=== PATIENT | male | born 1955 | race Two or more races ===

== ENCOUNTER 2020-10-22 14:12 | Emergency (ER) | payer OTHER ==
[~2020-10-22] VITALS: Ht 167.6 cm; Wt 74.8 kg
[2020-10-22 14:55] LABS: Basophils # (auto) 0.1 10 ^3/uL (0-0.2); Basophils % (auto) 0.6 % (0.0-2.0); Eosinophils # (auto) 0 10 ^3/uL (0-0.8); Eosinophils % (auto) 0.5 % (0.0-7.0); Hemoglobin 16.2 g/dL (13.5-17.5); Lymphocytes % (auto) 21.4 % (10.0-50.0); Mean Corpuscular Hemoglobin 30.4 pg (28.0-32.0); Mean Corpuscular Hgb Conc. 34.5 g/dL (32.0-36.0); Mean Corpuscular Volume 88.1 fL (80.0-100.0); Monocytes # (auto) 0.7 10 ^3/uL (0-1.3); Monocytes % (auto) 7.1 % (0.0-12.0); Neutrophils # (auto) 6.4 10 ^3/uL (1.6-8.6); Neutrophils % (auto) 70.4 % (37.0-80.0); Nucleated Red Blood Cells % 0.1 %; Red Blood Cells 5.33 10^6/uL (4.5-5.90); Red Cell Distribution Width 13.8 % (11.8-14.3); White Blood Cell 9.1 10^3/uL (4.4-10.8)
[2020-10-22] MEDS ORDERED: SODIUM CHLORIDE 0.9% 1,000 ML IV ONE (15:00)
[2020-10-22 15:13] LABS: Albumin 3.7 g/dL (3.4-5.0); BUN/Creatinine Ratio 13.6; Calcium 9.3 mg/dL (8.5-10.1); Potassium 3.6 mmol/L (3.5-5.1)
[2020-10-22 15:16] LABS: Bilirubin, Total 1.1 mg/dL (0.2-1.0); Total Protein 8.2 g/dL (6.4-8.2)
[2020-10-22 15:34] LABS: Urine Bacteria NONE SEEN /hpf (None Seen); Urine Blood TRACE /uL (Negative); Urine Mucus FEW (None Seen); Urine Specific Gravity 1.032 (1.001-1.035); Urine WBC 3 /hpf (0 - 3)
[2020-10-22] MEDS ORDERED: MORPHINE SULFATE 4 MG/ML SYR/VIAL IV ONE ×3 (16:00→22:00)
[2020-10-22] MEDS ORDERED: ONDANSETRON HCL 4 MG/2 ML VIAL IV ONE (16:00)
[2020-10-22] MEDS ORDERED: cefTRIAXone 1GM/50ML D5W 50 ML IV ONE (16:45)
[2020-10-22] MEDS ORDERED: metroNIDAZOLE 500MG/100ML 100 ML IV ONE (16:45)
[2020-10-22] MEDS ORDERED: LABETALOL HCL 5 MG/ML 4ML SYRINGE IV ONE (18:00)
[2020-10-23] MEDS ORDERED: MORPHINE SULFATE 4 MG/ML SYR/VIAL IV ONE (01:15)
[2020-10-23] MEDS ORDERED: hydrALAZINE HCL 20 MG/ML VL IV ONE (01:45)
[2020-10-23 03:00] VITALS: BP 176/81
== END 2020-10-23 03:38 | disposition short-term general hospital (02) ==
LOC: ER 14:12
DX: K57.92 Diverticulitis of intestine, part unspecified, without perforation or abscess without bleeding (principal); Z20.822 Contact with and (suspected) exposure to COVID-19
CPT/HCPCS: 36415; 74176; 80053; 81001; 83605; 83690; 85025; 87040; 87426; 93005; 96361; 96365; 96368; 96375; 96376; 99285; C9803; J0360; J0696; J2270; J2405; J3490; U0003

== ENCOUNTER 2022-12-06 23:08 | Inpatient (IN) | payer OTHER ==
[~2022-12-06] VITALS: Ht 167.6 cm; Wt 65.9 kg
[2022-12-06 23:57] LABS: Basophils # (auto) 0 10 ^3/uL (0-0.2); Basophils % (auto) 0.6 % (0.0-2.0); Eosinophils # (auto) 0 10 ^3/uL (0-0.8); Eosinophils % (auto) 0.5 % (0.0-7.0); Hematocrit 46.1 % (41.0-53.0); Hemoglobin 15.7 g/dL (13.5-17.5); Lymphocytes # (auto) 1.2 10 ^3/uL (0.4-5.4); Lymphocytes % (auto) 13.4 % (10.0-50.0); Mean Corpuscular Hemoglobin 29.2 pg (28.0-32.0); Mean Corpuscular Volume 86.1 fL (80.0-100.0); Monocytes # (auto) 0.9 10 ^3/uL (0-1.3); Monocytes % (auto) 10.1 % (0.0-12.0); Neutrophils # (auto) 6.8 10 ^3/uL (1.6-8.6); Neutrophils % (auto) 75.4 % (37.0-80.0); Nucleated Red Blood Cells % 0.1 %; Red Blood Cells 5.35 10^6/uL (4.5-5.90); Red Cell Distribution Width 15.3 % (11.8-14.3)
[2022-12-07] VITALS (24 sets, daily range): BP systolic 92–145; BP diastolic 51–96
[2022-12-07] MEDS ORDERED: cefTRIAXone 1GM/50ML D5W 50 ML IV ONE
[2022-12-07] MEDS ORDERED: metroNIDAZOLE 500MG/100ML 100 ML IV ONE
[2022-12-07 00:15] LABS: Albumin 2.9 g/dL (3.4-5.0); BUN/Creatinine Ratio 34.2 (10.0-20.0); Calcium 8.9 mg/dL (8.5-10.1); Potassium 3.8 mmol/L (3.5-5.1)
[2022-12-07 00:18] LABS: Bilirubin, Total 0.9 mg/dL (0.2-1.0); Total Protein 7.2 g/dL (6.4-8.2)
[2022-12-07] MEDS ORDERED: HYDROmorphone HCL 2 MG/ML VL/or syr IV ONE ×2 (00:45→12:15)
[2022-12-07] MEDS ORDERED: SODIUM CHLORIDE 0.9% 1,000 ML IV ONE (01:00)
[2022-12-07 01:28] LABS: INR 1.15 (0.9-1.15)
[2022-12-07] MEDS ORDERED: IOHEXOL 300 MG/ML 100ML BOTTLE IJ ONE (02:14)
[2022-12-07] MEDS ORDERED: NITROGLYCERIN 0.4 MG SL TAB SL PRN (03:30)
[2022-12-07] MEDS ORDERED: ACETAMINOPHEN 325 MG TAB PO PRN (03:30)
[2022-12-07] MEDS ORDERED: SODIUM CHLORIDE 0.9% 1,000 ML IV SCH (03:30)
[2022-12-07] MEDS ORDERED: MORPHINE SULFATE INJ 2 MG/ml SYRG IV PRN ×2 (03:30)
[2022-12-07 04:34] LABS: Basophils # (auto) 0 10 ^3/uL (0-0.2); Basophils % (auto) 0.2 % (0.0-2.0); Eosinophils # (auto) 0 10 ^3/uL (0-0.8); Eosinophils % (auto) 0.4 % (0.0-7.0); Hematocrit 45.1 % (41.0-53.0); Hemoglobin 15.5 g/dL (13.5-17.5); Lymphocytes # (auto) 1.2 10 ^3/uL (0.4-5.4); Lymphocytes % (auto) 13.5 % (10.0-50.0); Mean Corpuscular Hemoglobin 29.6 pg (28.0-32.0); Mean Corpuscular Hgb Conc. 34.4 g/dL (32.0-36.0); Mean Corpuscular Volume 86.3 fL (80.0-100.0); Monocytes # (auto) 0.9 10 ^3/uL (0-1.3); Neutrophils # (auto) 6.9 10 ^3/uL (1.6-8.6); Neutrophils % (auto) 75.9 % (37.0-80.0); Nucleated Red Blood Cells % 0.1 %; Red Blood Cells 5.22 10^6/uL (4.5-5.90); White Blood Cell 9.1 10^3/uL (4.4-10.8)
[2022-12-07 04:52] LABS: Calcium 8.5 mg/dL (8.5-10.1); Potassium 3.7 mmol/L (3.5-5.1)
[2022-12-07 04:58] LABS: Albumin 3.1 g/dL (3.4-5.0); BUN/Creatinine Ratio 36.6 (10.0-20.0); Bilirubin, Total 0.8 mg/dL (0.2-1.0)
[2022-12-07] MEDS: metroNIDAZOLE 500MG/100ML 100 ML IV SCH ×3 (05:54→20:33)
[2022-12-07] MEDS ORDERED: MET500T PO (07:17)
[2022-12-07] MEDS ORDERED: CARV12.544 PO (07:17)
[2022-12-07] MEDS ORDERED: APIX2.5T PO (07:17)
[2022-12-07] MEDS ORDERED: TRAM50TA2 PO (07:17)
[2022-12-07] MEDS ORDERED: HYDR50TA15 PO (07:17)
[2022-12-07] MEDS ORDERED: LOSA-69 PO (07:17)
[2022-12-07] MEDS ORDERED: AMLO-489 PO (07:17)
[2022-12-07] MEDS ORDERED: SUCCINYLCHOLINE CHLORIDE 20 MG/ML 10ML VIAL IV ONE (08:54)
[2022-12-07] MEDS ORDERED: MIDAZOLAM HCL 2MG/2ML 2ml VIAL (1mg/ml) ONE (08:55)
[2022-12-07] MEDS ORDERED: fentaNYL CITRATE 100 MCG/2 ML VL ONE ×2 (08:55→11:22)
[2022-12-07] MEDS ORDERED: ROCURONIUM 10MG/ML 10ML VIAL IV ONE (08:58)
[2022-12-07 09:05] LABS: INR 1.14 (0.9-1.15); Partial Thromboplastin Time 28.6 sec (24.6-33.4)
[2022-12-07] MEDS ORDERED: ceFAZolin 1GM/50ML 100 ML IV ONE (09:32)
[2022-12-07] MEDS: FAMOTIDINE (10MG/ML) 2ML VL IV SCH ×2 (10:00→20:33)
[2022-12-07] MEDS ORDERED: ALBUMIN 5% 500 ML IV ONE (10:30)
[2022-12-07] MEDS ORDERED: ONDANSETRON HCL 4 MG/2 ML VIAL ONE (11:03)
[2022-12-07] MEDS ORDERED: ETOMIDATE (2MG/ML) 20ML VIAL IV ONE (11:03)
[2022-12-07] MEDS ORDERED: NEOSTIGMINE 1 MG/ML INJ (10mg/10ML VIAL) ONE (11:05)
[2022-12-07] MEDS ORDERED: GLYCOPYRROLATE 0.2 MG/ML 1ML VIAL ONE (11:05)
[2022-12-07] MEDS ORDERED: POVIDONE IODINE 10 % TOPICAL OINT 30GM TOP ONE (11:32)
[2022-12-07] MEDS: HYDROmorphone HCL 2 MG/ML VL/or syr IV SCH ×4 (12:15→13:38)
[2022-12-07] MEDS: D5W/SOD CHL 0.45%/KCL 20MEQ 1,000 ML IV SCH (14:00)
[2022-12-07] MEDS: cefTRIAXone 1GM/50ML D5W 50 ML IV SCH (14:00)
[2022-12-07] MEDS: HYDROmorphone HCL 2 MG/ML VL/or syr IV PRN ×2 (14:34→20:34)
[2022-12-08] VITALS (56 sets, daily range): BP systolic 59–219; BP diastolic 56–204
[2022-12-08] MEDS: D5W/SOD CHL 0.45%/KCL 20MEQ 1,000 ML IV SCH ×3 (01:48→17:35)
[2022-12-08] MEDS: metroNIDAZOLE 500MG/100ML 100 ML IV SCH ×3 (06:00→23:35)
[2022-12-08] MEDS: HYDROmorphone HCL 2 MG/ML VL/or syr IV PRN ×5 (06:00→23:43)
[2022-12-08 06:59] LABS: Basophils # (auto) 0 10 ^3/uL (0-0.2); Basophils % (auto) 0.4 % (0.0-2.0); Eosinophils # (auto) 0 10 ^3/uL (0-0.8); Eosinophils % (auto) 0.2 % (0.0-7.0); Hematocrit 36.4 % (41.0-53.0); Hemoglobin 12.3 g/dL (13.5-17.5); Lymphocytes # (auto) 1.2 10 ^3/uL (0.4-5.4); Mean Corpuscular Hgb Conc. 33.8 g/dL (32.0-36.0); Mean Corpuscular Volume 85.8 fL (80.0-100.0); Monocytes # (auto) 1.1 10 ^3/uL (0-1.3); Neutrophils # (auto) 9.5 10 ^3/uL (1.6-8.6); Neutrophils % (auto) 80.4 % (37.0-80.0); Red Blood Cells 4.24 10^6/uL (4.5-5.90); White Blood Cell 11.8 10^3/uL (4.4-10.8)
[2022-12-08 07:28] LABS: Albumin 2.7 g/dL (3.4-5.0); Calcium 7.3 mg/dL (8.5-10.1); Potassium 4.3 mmol/L (3.5-5.1)
[2022-12-08 07:31] LABS: BUN/Creatinine Ratio 25.7 (10.0-20.0); Bilirubin, Total 0.9 mg/dL (0.2-1.0); Total Protein 5.4 g/dL (6.4-8.2)
[2022-12-08] MEDS: FAMOTIDINE (10MG/ML) 2ML VL IV SCH ×2 (07:43→23:35)
[2022-12-08] MEDS: cefTRIAXone 1GM/50ML D5W 50 ML IV SCH (07:58)
[2022-12-09] VITALS (39 sets, daily range): BP systolic 114–171; BP diastolic 70–101
[2022-12-09 04:53] LABS: Basophils # (auto) 0 10 ^3/uL (0-0.2); Basophils % (auto) 0.2 % (0.0-2.0); Eosinophils # (auto) 0.1 10 ^3/uL (0-0.8); Eosinophils % (auto) 1.1 % (0.0-7.0); Hemoglobin 11.5 g/dL (13.5-17.5); Lymphocytes # (auto) 1.1 10 ^3/uL (0.4-5.4); Lymphocytes % (auto) 11.3 % (10.0-50.0); Mean Corpuscular Hemoglobin 29.3 pg (28.0-32.0); Mean Corpuscular Hgb Conc. 33.9 g/dL (32.0-36.0); Mean Corpuscular Volume 86.4 fL (80.0-100.0); Monocytes # (auto) 0.9 10 ^3/uL (0-1.3); Monocytes % (auto) 9.3 % (0.0-12.0); Neutrophils # (auto) 7.8 10 ^3/uL (1.6-8.6); Neutrophils % (auto) 78.1 % (37.0-80.0); Nucleated Red Blood Cells % 0.2 %; Red Blood Cells 3.93 10^6/uL (4.5-5.90); Red Cell Distribution Width 15.1 % (11.8-14.3)
[2022-12-09 05:03] LABS: Calcium 7.8 mg/dL (8.5-10.1); Magnesium 2.1 mg/dL (1.6-2.6); Potassium 4.5 mmol/L (3.5-5.1)
[2022-12-09] MEDS: metroNIDAZOLE 500MG/100ML 100 ML IV SCH ×3 (05:17→20:44)
[2022-12-09] MEDS: D5W/SOD CHL 0.45%/KCL 20MEQ 1,000 ML IV SCH ×3 (05:17→21:58)
[2022-12-09] MEDS: HYDROmorphone HCL 2 MG/ML VL/or syr IV PRN ×6 (05:27→20:45)
[2022-12-09] MEDS: cefTRIAXone 1GM/50ML D5W 50 ML IV SCH (09:09)
[2022-12-09] MEDS: FAMOTIDINE (10MG/ML) 2ML VL IV SCH ×2 (10:10→20:44)
[2022-12-09] MEDS: hydrALAZINE HCL 20 MG/ML VL IV PRN (21:53)
[2022-12-10] VITALS (27 sets, daily range): BP systolic 129–163; BP diastolic 75–96
[2022-12-10] MEDS: HYDROmorphone HCL 2 MG/ML VL/or syr IV PRN ×4 (01:26→19:58)
[2022-12-10 05:19] LABS: Basophils # (auto) 0 10 ^3/uL (0-0.2); Basophils % (auto) 0.4 % (0.0-2.0); Eosinophils # (auto) 0.1 10 ^3/uL (0-0.8); Eosinophils % (auto) 1.4 % (0.0-7.0); Hematocrit 33.3 % (41.0-53.0); Hemoglobin 11.4 g/dL (13.5-17.5); Lymphocytes # (auto) 1.3 10 ^3/uL (0.4-5.4); Lymphocytes % (auto) 14.2 % (10.0-50.0); Mean Corpuscular Hemoglobin 29.8 pg (28.0-32.0); Mean Corpuscular Hgb Conc. 34.3 g/dL (32.0-36.0); Mean Corpuscular Volume 86.9 fL (80.0-100.0); Monocytes # (auto) 0.8 10 ^3/uL (0-1.3); Monocytes % (auto) 8.9 % (0.0-12.0); Neutrophils # (auto) 6.7 10 ^3/uL (1.6-8.6); Neutrophils % (auto) 75.1 % (37.0-80.0); Red Blood Cells 3.84 10^6/uL (4.5-5.90); Red Cell Distribution Width 14.7 % (11.8-14.3); White Blood Cell 8.9 10^3/uL (4.4-10.8)
[2022-12-10] MEDS: metroNIDAZOLE 500MG/100ML 100 ML IV SCH ×3 (05:19→22:00)
[2022-12-10 05:32] LABS: Albumin 2.4 g/dL (3.4-5.0); Calcium 7.7 mg/dL (8.5-10.1); Potassium 4.9 mmol/L (3.5-5.1)
[2022-12-10 05:35] LABS: BUN/Creatinine Ratio 18.2 (10.0-20.0); Bilirubin, Total 0.8 mg/dL (0.2-1.0); Total Protein 4.9 g/dL (6.4-8.2)
[2022-12-10] MEDS: D5W/SOD CHL 0.45%/KCL 20MEQ 1,000 ML IV SCH ×3 (06:25→18:50)
[2022-12-10] MEDS: cefTRIAXone 1GM/50ML D5W 50 ML IV SCH (08:40)
[2022-12-10] MEDS: HYDROcodone-ACET 5/325MG TAB PO PRN ×2 (12:19→18:50)
[2022-12-10] MEDS: ONDANSETRON HCL 4 MG/2 ML VIAL IV PRN ×2 (18:49→22:56)
[2022-12-10] MEDS: hydrALAZINE HCL 20 MG/ML VL IV PRN (21:02)
[2022-12-11 05:00] VITALS: BP 149/89
[2022-12-11] MEDS: metroNIDAZOLE 500MG/100ML 100 ML IV SCH ×3 (05:49→21:49)
[2022-12-11] MEDS: D5W/SOD CHL 0.45%/KCL 20MEQ 1,000 ML IV SCH ×2 (05:49→15:48)
[2022-12-11 06:32] LABS: Calcium 7.8 mg/dL (8.5-10.1); Magnesium 1.8 mg/dL (1.6-2.6); Potassium 4.1 mmol/L (3.5-5.1)
[2022-12-11 06:35] LABS: BUN/Creatinine Ratio 20.8 (10.0-20.0)
[2022-12-11 08:58] VITALS: BP 143/90
[2022-12-11] MEDS: cefTRIAXone 1GM/50ML D5W 50 ML IV SCH (09:04)
[2022-12-11] MEDS: MORPHINE SULFATE INJ 2 MG/ml SYRG IV PRN ×2 (11:55→21:52)
[2022-12-11 12:56] VITALS: BP 150/90
[2022-12-11] MEDS ORDERED: LOSARTAN POTASSIUM 50 MG TAB PO ONE (14:45)
[2022-12-11 17:00] VITALS: BP 158/94
[2022-12-11 21:44] VITALS: BP 152/93
[2022-12-11] MEDS: CARVEDILOL 3.125 MG TAB PO SCH (21:51)
[2022-12-12] MEDS: D5W/SOD CHL 0.45%/KCL 20MEQ 1,000 ML IV SCH ×4 (01:58→21:43)
[2022-12-12 05:20] VITALS: BP 148/80
[2022-12-12] MEDS: metroNIDAZOLE 500MG/100ML 100 ML IV SCH ×3 (06:02→21:40)
[2022-12-12 08:36] VITALS: BP 156/96
[2022-12-12] MEDS: cefTRIAXone 1GM/50ML D5W 50 ML IV SCH (10:48)
[2022-12-12] MEDS: CARVEDILOL 3.125 MG TAB PO SCH ×2 (10:50→21:40)
[2022-12-12] MEDS: amLODIPine BESYLATE 5 MG TAB PO SCH (10:51)
[2022-12-12] MEDS: LOSARTAN POTASSIUM 50 MG TAB PO SCH (10:52)
[2022-12-12] MEDS: MORPHINE SULFATE INJ 2 MG/ml SYRG IV PRN (11:14)
[2022-12-12 12:32] VITALS: BP 154/95
[2022-12-12 22:00] VITALS: BP 142/88
[2022-12-13] MEDS: MORPHINE SULFATE 4 MG/ML SYR/VIAL IV PRN (01:13)
[2022-12-13 05:00] VITALS: BP 163/96
[2022-12-13] MEDS: metroNIDAZOLE 500MG/100ML 100 ML IV SCH ×3 (06:01→21:56)
[2022-12-13] MEDS: hydrALAZINE HCL 20 MG/ML VL IV PRN (06:48)
[2022-12-13 09:00] VITALS: BP 133/77
[2022-12-13] MEDS: amLODIPine BESYLATE 5 MG TAB PO SCH (09:21)
[2022-12-13] MEDS: LOSARTAN POTASSIUM 50 MG TAB PO SCH (09:21)
[2022-12-13] MEDS: CARVEDILOL 3.125 MG TAB PO SCH ×2 (09:22→21:57)
[2022-12-13] MEDS: cefTRIAXone 1GM/50ML D5W 50 ML IV SCH (09:23)
[2022-12-13] MEDS: D5W/SOD CHL 0.45%/KCL 20MEQ 1,000 ML IV SCH ×2 (09:24→18:50)
[2022-12-13] MEDS: MORPHINE SULFATE INJ 2 MG/ml SYRG IV PRN ×2 (09:33→21:58)
[2022-12-13 13:00] VITALS: BP 109/65
[2022-12-13 17:00] VITALS: BP 135/75
[2022-12-13 21:51] VITALS: BP 141/77
[2022-12-14] MEDS: D5W/SOD CHL 0.45%/KCL 20MEQ 1,000 ML IV SCH ×3 (04:11→22:58)
[2022-12-14 05:00] VITALS: BP 140/77
[2022-12-14] MEDS: MORPHINE SULFATE INJ 2 MG/ml SYRG IV PRN ×3 (05:33→13:40)
[2022-12-14] MEDS: metroNIDAZOLE 500MG/100ML 100 ML IV SCH ×3 (05:39→22:53)
[2022-12-14 05:59] LABS: Basophils # (auto) 0 10 ^3/uL (0-0.2); Basophils % (auto) 0.3 % (0.0-2.0); Eosinophils # (auto) 0.1 10 ^3/uL (0-0.8); Eosinophils % (auto) 1.3 % (0.0-7.0); Hematocrit 31.7 % (41.0-53.0); Hemoglobin 10.7 g/dL (13.5-17.5); Lymphocytes # (auto) 1.1 10 ^3/uL (0.4-5.4); Lymphocytes % (auto) 14.7 % (10.0-50.0); Mean Corpuscular Hemoglobin 28.7 pg (28.0-32.0); Mean Corpuscular Hgb Conc. 33.9 g/dL (32.0-36.0); Mean Corpuscular Volume 84.7 fL (80.0-100.0); Monocytes % (auto) 13.9 % (0.0-12.0); Neutrophils % (auto) 69.8 % (37.0-80.0); Nucleated Red Blood Cells % 0.1 %; Red Blood Cells 3.74 10^6/uL (4.5-5.90); Red Cell Distribution Width 14.5 % (11.8-14.3); White Blood Cell 7.2 10^3/uL (4.4-10.8)
[2022-12-14 06:16] LABS: Calcium 7.5 mg/dL (8.5-10.1); Magnesium 1.8 mg/dL (1.6-2.6); Potassium 3.2 mmol/L (3.5-5.1)
[2022-12-14 06:18] LABS: BUN/Creatinine Ratio 20.9 (10.0-20.0)
[2022-12-14 09:00] VITALS: BP 151/81
[2022-12-14] MEDS: cefTRIAXone 1GM/50ML D5W 50 ML IV SCH (09:48)
[2022-12-14] MEDS: LOSARTAN POTASSIUM 50 MG TAB PO SCH (09:48)
[2022-12-14] MEDS: CARVEDILOL 3.125 MG TAB PO SCH ×2 (09:49→22:55)
[2022-12-14] MEDS: amLODIPine BESYLATE 5 MG TAB PO SCH (09:50)
[2022-12-14] MEDS ORDERED: POTASSIUM CHL 20 Meq TABLET PO ONE (12:45)
[2022-12-14 12:53] VITALS: BP 148/82
[2022-12-14 17:19] VITALS: BP 131/82
[2022-12-14 22:00] VITALS: BP 159/82
[2022-12-14] MEDS: MORPHINE SULFATE 4 MG/ML SYR/VIAL IV PRN (22:55)
[2022-12-15] MEDS: D5W/SOD CHL 0.45%/KCL 20MEQ 1,000 ML IV SCH ×3 (03:05→19:45)
[2022-12-15 05:00] VITALS: BP 160/80
[2022-12-15 06:02] LABS: Calcium 7.7 mg/dL (8.5-10.1); Potassium 3.3 mmol/L (3.5-5.1)
[2022-12-15 06:05] LABS: BUN/Creatinine Ratio 17.1 (10.0-20.0)
[2022-12-15] MEDS: metroNIDAZOLE 500MG/100ML 100 ML IV SCH ×2 (06:12→22:48)
[2022-12-15 08:27] VITALS: BP 127/76
[2022-12-15] MEDS: cefTRIAXone 1GM/50ML D5W 50 ML IV SCH (08:55)
[2022-12-15] MEDS ORDERED: POTASSIUM CHL 20 Meq TABLET PO ONE (09:45)
[2022-12-15] MEDS: LOSARTAN POTASSIUM 50 MG TAB PO SCH (10:49)
[2022-12-15] MEDS: CARVEDILOL 3.125 MG TAB PO SCH ×2 (10:49→22:49)
[2022-12-15] MEDS: amLODIPine BESYLATE 5 MG TAB PO SCH (10:50)
[2022-12-15 12:18] VITALS: BP 152/83
[2022-12-15 16:25] VITALS: BP 136/75
[2022-12-15] MEDS: MORPHINE SULFATE 4 MG/ML SYR/VIAL IV PRN (18:10)
[2022-12-16] MEDS: D5W/SOD CHL 0.45%/KCL 20MEQ 1,000 ML IV SCH (04:29)
[2022-12-16] MEDS: MORPHINE SULFATE INJ 2 MG/ml SYRG IV PRN ×2 (04:50→10:07)
[2022-12-16 05:00] VITALS: BP 151/88
[2022-12-16] MEDS: metroNIDAZOLE 500MG/100ML 100 ML IV SCH (05:27)
[2022-12-16 09:00] VITALS: BP 159/92
[2022-12-16] MEDS: cefTRIAXone 1GM/50ML D5W 50 ML IV SCH (09:20)
[2022-12-16] MEDS: CARVEDILOL 3.125 MG TAB PO SCH (10:06)
[2022-12-16] MEDS: amLODIPine BESYLATE 5 MG TAB PO SCH (10:06)
[2022-12-16] MEDS: LOSARTAN POTASSIUM 50 MG TAB PO SCH (10:07)
[2022-12-16] MEDS ORDERED: HYDR-4902 PO (10:35)
[2022-12-16 11:40] VITALS: BP 135/81
[2022-12-16 13:00] VITALS: BP 130/80
== END 2022-12-16 14:15 | disposition home health service (06) | DRG 330 ==
LOC: EDBD 23:08 → ER 23:08 → OVERFLOW 12-07 03:40 → WEST WING 12-07 05:58 → ICU WEST 12-07 09:32 → ICU CENTRL 12-07 12:08 → DOU IN ICU 12-09 21:22 → TELE-WESTW 12-10 05:58 → WEST WING 12-12 20:49
PROVIDERS: ADMIT Nurse Practitioner Family; ATTEND Internal Medicine Geriatric Medicine
PROC: 0DBM0ZZ Excision of Descending Colon, Open Approach (ICD-10-PCS; 2022-12-07)
PROC: 0D9N8ZZ Drainage of Sigmoid Colon, Via Natural or Artificial Opening Endoscopic (ICD-10-PCS; 2022-12-07)
PROC: 0D1M0Z4 Bypass Descending Colon to Cutaneous, Open Approach (ICD-10-PCS; 2022-12-07)
PROC: 0DBN0ZZ Excision of Sigmoid Colon, Open Approach (ICD-10-PCS; principal; 2022-12-07 09:33)
DX: K57.20 Diverticulitis of large intestine with perforation and abscess without bleeding (principal); E44.0 Moderate protein-calorie malnutrition; K66.8 Other specified disorders of peritoneum; R73.9 Hyperglycemia, unspecified; I11.0 Hypertensive heart disease with heart failure; E78.5 Hyperlipidemia, unspecified; I25.10 Atherosclerotic heart disease of native coronary artery without angina pectoris; I50.9 Heart failure, unspecified; Z95.1 Presence of aortocoronary bypass graft
CPT/HCPCS: 36415; 71045; 74177; 80048; 80053; 83605; 83690; 83735; 83880; 84484; 85025; 85610; 85730; 86850; 86900; 86901; 87070; 87075; 87077; 87081; 87186; 87205; 93005; 96365; 96368; 96375; 97110; 97116; 97163; 97530; 99291; G0378; J0330; J0690; J0696; J2250; J2405; J3490

== ENCOUNTER 2022-12-18 13:16 | Emergency (ER) | payer OTHER ==
[~2022-12-18] VITALS: Ht 177.8 cm; Wt 64.0 kg
[~2022-12-18 13:16] MED LIST: AMLO-489 PO; APIX2.5T PO; CARV12.544 PO; HYDR-4902 PO; HYDR50TA15 PO; LOSA-69 PO; MET500T PO; TRAM50TA2 PO
[2022-12-18 17:32] VITALS: BP 124/70
== END 2022-12-18 18:01 | disposition home or self-care (01) ==
LOC: EDBD 13:16 → ER 13:16
DX: R53.1 Weakness (principal); Z43.3 Encounter for attention to colostomy
CPT/HCPCS: 93005

== ENCOUNTER 2023-12-10 08:07 | Emergency (ER) | payer OTHER ==
[~2023-12-10] VITALS: Ht 167.6 cm; Wt 71.6 kg
[~2023-12-10 08:07] MED LIST changes: -AMLO-489 PO; +AMLO1TAB22 PO; -HYDR50TA15 PO; +HYDR50TA47 PO; +LOSA-534 PO; -LOSA-69 PO
[2023-12-10 08:59] LABS: Basophils # (auto) 0 10 ^3/uL (0-0.2); Basophils % (auto) 0.5 % (0.0-2.0); Eosinophils # (auto) 0.2 10 ^3/uL (0-0.8); Eosinophils % (auto) 3.3 % (0.0-7.0); Hematocrit 47.1 % (41.0-53.0); Hemoglobin 15.9 g/dL (13.5-17.5); Lymphocytes # (auto) 1.6 10 ^3/uL (0.4-5.4); Lymphocytes % (auto) 22.9 % (10.0-50.0); Mean Corpuscular Hemoglobin 29.3 pg (28.0-32.0); Mean Corpuscular Hgb Conc. 33.8 g/dL (32.0-36.0); Mean Corpuscular Volume 86.9 fL (80.0-100.0); Monocytes # (auto) 0.5 10 ^3/uL (0-1.3); Monocytes % (auto) 6.5 % (0.0-12.0); Neutrophils # (auto) 4.8 10 ^3/uL (1.6-8.6); Neutrophils % (auto) 66.8 % (37.0-80.0); Nucleated Red Blood Cells % 0.1 %; Red Blood Cells 5.42 10^6/uL (4.5-5.90); Red Cell Distribution Width 14.5 % (11.8-14.3); White Blood Cell 7.2 10^3/uL (4.4-10.8)
[2023-12-10 09:23] LABS: Anion Gap 6 (5-15); Carbon Dioxide 25 mmol/L (20-30); Chloride 107 mmol/L (98-107); Potassium 3.7 mmol/L (3.5-5.1); Sodium 138 mmol/L (136-145)
[2023-12-10 09:24] LABS: Calcium 9.6 mg/dL (8.5-10.1)
[2023-12-10 09:29] LABS: Blood Urea Nitrogen 9 mg/dL (9-23); Glucose 140 mg/dL (74-106)
[2023-12-10] MEDS: cloNIDine HCL 0.1 MG TAB PO ONE (10:52)
[2023-12-10 10:53] VITALS: TEMP 98.4
[2023-12-10 11:53] VITALS: BP 133/87; PULSE 84; RESP 16; O2SAT 97
[2023-12-10] MEDS: SODIUM CHLORIDE 0.9% 1,000 ML IV ONE (11:53)
== END 2023-12-10 12:03 | disposition home or self-care (01) ==
LOC: ER 08:07
DX: I11.0 Hypertensive heart disease with heart failure (principal); I50.9 Heart failure, unspecified; R73.9 Hyperglycemia, unspecified; I25.810 Atherosclerosis of coronary artery bypass graft(s) without angina pectoris; K57.92 Diverticulitis of intestine, part unspecified, without perforation or abscess without bleeding; Z93.3 Colostomy status; Z79.899 Other long term (current) drug therapy
CPT/HCPCS: 36415; 71046; 80048; 83735; 85025; 93005

== ENCOUNTER 2024-01-26 01:51 | Emergency (ER) | payer OTHER ==
[~2024-01-26] VITALS: Ht 175.3 cm; Wt 70.0 kg
[2024-01-26 03:57] LABS: Basophils # (auto) 0.1 10 ^3/uL (0-0.2); Basophils % (auto) 0.8 % (0.0-2.0); Eosinophils # (auto) 0.1 10 ^3/uL (0-0.8); Eosinophils % (auto) 0.5 % (0.0-7.0); Hematocrit 34.8 % (41.0-53.0); Hemoglobin 11.8 g/dL (13.5-17.5); Lymphocytes % (auto) 5.5 % (10.0-50.0); Mean Corpuscular Hemoglobin 29.7 pg (28.0-32.0); Mean Corpuscular Hgb Conc. 34.1 g/dL (32.0-36.0); Mean Corpuscular Volume 87.3 fL (80.0-100.0); Monocytes # (auto) 1.5 10 ^3/uL (0-1.3); Monocytes % (auto) 8.4 % (0.0-12.0); Neutrophils # (auto) 14.9 10 ^3/uL (1.6-8.6); Neutrophils % (auto) 84.8 % (37.0-80.0); Red Blood Cells 3.98 10^6/uL (4.5-5.90); Red Cell Distribution Width 14.8 % (11.8-14.3); White Blood Cell 17.6 10^3/uL (4.4-10.8)
[2024-01-26 03:58] LABS: Chloride 105 mmol/L (98-107); Potassium 2.9 mmol/L (3.5-5.1); Sodium 137 mmol/L (136-145)
[2024-01-26 03:59] LABS: Anion Gap 11 (5-15); Carbon Dioxide 21 mmol/L (20-30)
[2024-01-26 04:00] LABS: Calcium 9.1 mg/dL (8.7-10.4)
[2024-01-26 04:04] LABS: BUN/Creatinine Ratio 19.4 (10.0-20.0); Blood Urea Nitrogen 13 mg/dL (9-23); Glucose 195 mg/dL (74-106)
[2024-01-26 05:07] VITALS: PULSE 86; RESP 10; O2SAT 97
[2024-01-26] MEDS: cefTRIAXone 1GM/50ML D5W 50 ML IV ONE (05:26)
[2024-01-26] MEDS: POTASSIUM CHL 20MEQ/100ML 100 ML IV SCH (05:41)
[2024-01-26 07:05] LABS: Urine Bacteria FEW /hpf (None Seen); Urine Blood 3+ /uL (Negative); Urine Clarity Turbid (Clear); Urine Color Light-Orange (Yellow); Urine Mucus FEW (None Seen); Urine Protein, UAD 3+ (Negative); Urine Specific Gravity 1.031 (1.001-1.035); Urine Urobilinogen Normal (Negative); Urine WBC 418 /hpf (0 - 3)
[2024-01-26 07:26] VITALS: PULSE 75; RESP 17; O2SAT 94
[2024-01-26] MEDS: OMNIPAQUE 12mg/ml 500ml ORAL SOLUTION PO ONE (10:21)
[2024-01-26] MEDS: IOHEXOL 300 MG/ML 100ML BOTTLE IJ ONE (12:55)
[2024-01-26] MEDS: LOSARTAN POTASSIUM 25 MG TAB PO ONE (13:49)
[2024-01-26] MEDS: CARVEDILOL 12.5 MG TAB PO ONE (13:50)
[2024-01-26] MEDS: hydrALAZINE HCL 20 MG/ML VL IV ONE (13:50)
[2024-01-26] MEDS: ONDANSETRON HCL 4 MG/2 ML VIAL IV ONE (18:08)
[2024-01-26] MEDS: D5W/ SOD CHL 0.9%/KCL 20MEQ 1,000 ML IV ONE (18:08)
[2024-01-26] MEDS: HYDROmorphone HCL 2 MG/ML VL/or syr IV ONE (18:09)
[2024-01-26 19:20] VITALS: PULSE 67; RESP 10; O2SAT 96
[2024-01-26] MEDS: PIPERACILLIN-TAZOB 3.375GM 100 ML IV SCH (20:19)
[2024-01-26 23:06] VITALS: BP 126/67; PULSE 62; RESP 12; TEMP 98.3; O2SAT 95
== END 2024-01-26 23:35 | disposition short-term general hospital (02) ==
LOC: EDBD 01:51 → ER 01:51
DX: T83.84XD Pain due to genitourinary prosthetic devices, implants and grafts, subsequent encounter (principal); E87.6 Hypokalemia; N39.0 Urinary tract infection, site not specified; I50.9 Heart failure, unspecified; Z98.890 Other specified postprocedural states; Z79.899 Other long term (current) drug therapy; Y92.89 Other specified places as the place of occurrence of the external cause
CPT/HCPCS: 36415; 51702; 74177; 80048; 81001; 85025; 87086; 87088; 87186; 96365; 96366; 96367; 96368; 96375; 99285; J0360; J0696; J1170; J2405; J2543; J3480; Q9967